=== PATIENT | male | born 1980 ===

== ENCOUNTER 2016-07-05 19:11 | Emergency (ER) | payer MEDICAID ==
[2016-07-05 19:12] VITALS: BMI 18.0
[2016-07-05 21:09] LABS: URINE BILIRUBIN NEGATIVE (NEGATIVE); URINE BLOOD NEGATIVE (NEGATIVE); URINE COLOR Yellow (YELLOW); URINE GLUCOSE (UA) NORMAL (Normal); URINE KETONE NEGATIVE (NEGATIVE); URINE LEUKOCYTE ESTERASE NEG Leu/uL (Negative); URINE PROTEIN NEGATIVE (NEGATIVE); URINE UROBILINOGEN NORMAL mg/dL (0.2-1.0); WBC URINE < 1 /hpf (0-5)
--- NOTE | 2016-07-05 21:40 | C.PDOC ---
History Of Present Illness 36 y/o male presents to the ED with complains of feeling febrile and having back hernia, umbilical hernia and inguinal hernia x2 days. Pt denies having seen physician recently or being diagnosed by physician. Denies vomiting, diarrhea, abdominal pain or any other complaints. Time Seen by Provider: 07/05/16 19:50 Chief Complaint (Nursing): Back Pain History Per: Patient History/Exam Limitations: no limitations Onset/Duration Of Symptoms: Days Current Symptoms Are (Timing): Still Present Severity: Mild Associated Symptoms: None Recent travel outside of the [place]: No Past Medical History Reviewed: Historical Data, Nursing Documentation, Vital Signs Vital Signs: Last Vital Signs Temp 99.6 F 07/05/16 19:31 Pulse 88 07/05/16 19:31 Resp 20 07/05/16 19:31 BP 135/89 07/05/16 19:31 Pulse Ox 100 07/05/16 21:42 Family History: States: Unknown Family Hx - Social History Hx Alcohol Use: Yes Hx Substance Use: No Review Of Systems Constitutional: Positive for: Fever Gastrointestinal: Negative for: Vomiting, Abdominal Pain, Diarrhea Physical Exam - Physical Exam Appears: Non-toxic, No Acute Distress Skin: Warm, Dry, No Rash Head: Atraumatic, Normacephalic Neck: Normal, Normal ROM, Supple Chest: Symmetrical Cardiovascular: Rhythm Regular, No Murmur Respiratory: Normal Breath Sounds, No Rales, No Rhonchi, No Wheezing Gastrointestinal/Abdominal: Normal Exam, Soft, No Tenderness, No Guarding, No Rebound, Other (no obvious hernia) Back: No Vertebral Tenderness, Paraspinal Tenderness (lumbar) Male Genital: No Inguinal Swelling, Other (no obvious hernia) Extremity: Normal ROM Extremity: Bilateral: Atraumatic Neurological/Psych: Oriented x3, Normal Speech, Normal Motor, Normal Sensation ED Course And Treatment O2 Sat by Pulse Oximetry: 100 (room air) Pulse Ox Interpretation: Normal Progress Note: Plan: urinalysis. UA normal. Disposition - Disposition Referrals: [facility] at [facility] [Outside] [facility] [Outside] Disposition: HOME/ ROUTINE Disposition Time: 22:46 Condition: STABLE Additional Instructions: Follow up in Clinic within 1-2 days. Return to ED if feel worse. Prescriptions: Cyclobenzaprine [Cyclobenzaprine HCl] 10 mg PO TID #15 tab Ibuprofen [Motrin Tab] 600 mg PO Q8 #30 tab Instructions: Back Pain (ED) Print Language: AUSTRIAN - Clinical Impression Clinical Impression: Low back pain - PA / TECHNOLOGIST DEVELOPMENT / Resident Statement MD/DO has reviewed & agrees with the documentation as recorded. - Scribe Statement The provider has reviewed the documentation as recorded by the Scribe Carlos Gusman All medical record entries made by the Scribe were at my direction and personally dictated by me. I have reviewed the chart and agree that the record accurately reflects my personal performance of the history, physical exam, medical decision making, and the department course for this patient. I have also personally directed, reviewed, and agree with the discharge instructions and disposition.
[2016-07-05 23:03] VITALS: BP 130/80; PULSE 100; RESP 18; TEMP 98.9
[2016-07-06 02:45] VITALS: O2SAT 100
== END 2016-07-05 23:02 | disposition home or self-care (01) ==
LOC: C.ER 19:11
DX: M54.5 Low back pain (principal)

== ENCOUNTER 2017-05-05 13:48 | Emergency (ER) | payer MEDICAID, OTHER ==
[2017-05-05 13:48] VITALS: BMI 18.0
[2017-05-05 13:54] VITALS: RESP 20; TEMP 97.7
[2017-05-05] MEDS ORDERED: Tdap Vaccine 0.5 ml Vial (10-64 yrs) IM ONE ×2 (14:16→14:24)
--- NOTE | 2017-05-05 14:39 | C.PDOC ---
History Of Present Illness 37-year-old male, presents to the emergency department with complaints of two- day duration of left foot pain, s/p injury at work. Patient states he was working and stepped on a antony nail that went through his boot and into his foot. Patient states he is unable to walk secondary to pain. Injury was reported. He is not up to date with tetanus. Denies numbness/weakness, fevers. Time Seen by Provider: 05/05/17 13:57 Chief Complaint (Nursing): Lower Extremity Problem/Injury History Per: Patient History/Exam Limitations: no limitations Onset/Duration Of Symptoms: Days Past Medical History Reviewed: Historical Data, Nursing Documentation, Vital Signs Vital Signs: Last Vital Signs Temp 97.7 F 05/05/17 13:50 Pulse 59 L 05/05/17 13:50 Resp 20 05/05/17 13:50 BP 140/90 05/05/17 13:50 Pulse Ox 98 05/05/17 15:14 Family History: States: No Known Family Hx - Social History Hx Alcohol Use: Yes Hx Substance Use: No - Immunization History Hx Tetanus Toxoid Vaccination: No Hx Influenza Vaccination: No Hx Pneumococcal Vaccination: No Review Of Systems Constitutional: Negative for: Fever Gastrointestinal: Negative for: Vomiting Musculoskeletal: Positive for: Foot Pain Neurological: Negative for: Weakness, Numbness Physical Exam - Physical Exam Appears: Non-toxic, No Acute Distress Skin: Normal Color, Warm, Dry, No Rash Head: Normacephalic Extremity: Other (Left foot, puncture wound to plantar surface. neurovascularly intact) Pulses: Left Dorsalis Pedis: Normal, Right Dorsalis Pedis: Normal Neurological/Psych: Oriented x3, Normal Speech ED Course And Treatment O2 Sat by Pulse Oximetry: 98 (RA) Pulse Ox Interpretation: Normal Medical Decision Making Medical Decision Making: Impression * Cipro, Motrin, Tetanus * XR L foot * Reassess and Disposition Disposition Counseled Patient/Family Regarding: Studies Performed, Diagnosis, Need For Followup, Rx Given - Disposition Referrals: [facility] at [facility] [Outside] Disposition: HOME/ ROUTINE Disposition Time: 15:21 Condition: STABLE Additional Instructions: follow up with medical clinic in 2 days call to make an appointment take medications as prescribed return to hospital if symptoms worsens or progress Prescriptions: Ciprofloxacin HCl [Cipro] 500 mg PO BID #20 tab Naproxen [Naprosyn] 500 mg PO BID PRN #16 tab PRN Reason: Pain, Moderate (4-7) Instructions: Wound Care, Wound Care (DC) Forms: Gen Discharge Inst [place], [facility] ([place]) Print Language: DANISH - Clinical Impression Clinical Impression: Puncture wound - Scribe Statement The provider has reviewed the documentation as recorded by the Scribe (Jesusita Zamarripa) All medical record entries made by the Scribe were at my direction and personally dictated by me. I have reviewed the chart and agree that the record accurately reflects my personal performance of the history, physical exam, medical decision making, and the department course for this patient. I have also personally directed, reviewed, and agree with the discharge instructions and disposition.
[2017-05-05 15:30] VITALS: BP 148/85; PULSE 62; O2SAT 100
--- NOTE | 2017-05-05 15:48 | RAD ---
PROCEDURE: Left Foot Radiographs. HISTORY: foot pain COMPARISON: None. FINDINGS: BONES: No fracture. Dorsal midfoot osseous hypertrophy JOINTS: 1st metatarsal joint space narrowing -osteoarthrosis calcaneal cuboid hypertrophic spurring/arthrosis here also suggested SOFT TISSUES: Normal. OTHER FINDINGS: None. IMPRESSION: No fracture. Multifocal arthrosis
== END 2017-05-05 15:30 | disposition home or self-care (01) ==
LOC: C.ER 13:48
DX: S91.332A Puncture wound without foreign body, left foot, initial encounter (principal); W45.0XXA Nail entering through skin, initial encounter; Y92.89 Other specified places as the place of occurrence of the external cause; Y99.0 Civilian activity done for income or pay